=== PATIENT | male | born 1970 | race Caucasian/White ===

== ENCOUNTER 2019-04-14 16:44 | Emergency (ER) | payer OTHER ==
[~2019-04-14] VITALS: Ht 198.1 cm; Wt 90.7 kg
[2019-04-14 16:44] VITALS: BP 130/75
[~2019-04-14 16:44] MED LIST: ASPI-807 PO; ATEN50TA PO; BUPR100T4 PO; CLOP75TA15 PO; METF-440 PO; METO50TA16 PO; NITR0.4T48 SL; QUET300T2 PO
--- NOTE | 2019-04-14 16:50 | NUR ---
BIBRA 60 AND [employer] FOR "ABNORMAL VS TACHY AT 145BPM WHEN HE'S BEING CLEARED". NO C/O PAIN OR DISCOMFORT. 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 TO ER BED 12, HOOKED TO MONITOR, CHANGED TO GOWN, AWAITING MD CARREON.
--- NOTE | 2019-04-14 17:02 | NUR ---
DR WAGNER AT BEDSIDE FOR EVAL.
--- NOTE | 2019-04-14 17:16 | NUR ---
PATIENT DECIDED TO GO AMA. SIGNED AMA FORM.
--- NOTE | 2019-04-14 17:19 | NUR ---
Patient does not wish to proceed with medical care recommended by Dr. WAGNER. Patient given information related to possible complications, up to and including , which could occur as a result of leaving the hospital at this time. Patient verbalizes understanding of risks involved due to leaving against medical advice.
== END 2019-04-14 17:38 | disposition home or self-care (01) ==
LOC: ER 16:50
DX: F11.23 Opioid dependence with withdrawal (principal); R00.0 Tachycardia, unspecified; I10 Essential (primary) hypertension; E11.9 Type 2 diabetes mellitus without complications; Z95.818 Presence of other cardiac implants and grafts; Z88.6 Allergy status to analgesic agent; Z60.2 Problems related to living alone; Z79.84 Long term (current) use of oral hypoglycemic drugs; Z79.82 Long term (current) use of aspirin; Z79.899 Other long term (current) drug therapy

== ENCOUNTER 2020-12-31 11:13 | Emergency (ER) | payer OTHER ==
[~2020-12-31] VITALS: Ht 198.1 cm; Wt 74.4 kg
--- NOTE | 2020-12-31 11:38 | NUR ---
Patient a/o x3, c/o of SOB and Chest pain, non radiating, per patient he had 2 stent put in year 1999'. VSS, safety measures initiated, will continue to monitor.
[2020-12-31 11:53] LABS: BASOPHILS # (AUTO) 0.1 /CMM (0.0-0.2); BASOPHILS % (AUTO) 0.4 % (0.0-2.0); EOSINOPHILS % (AUTO) 0.6 % (0.0-6.0); HEMATOCRIT 41 % (39-51); HEMOGLOBIN 13.3 g/dL (13.5-17.5); LYMPHOCYTES # (AUTO) 1.2 /CMM (0.8-4.8); LYMPHOCYTES % (AUTO) 6.8 % (20.0-44.0); MEAN CORPUSCULAR HGB CONC 33 g/dl (31.0-36.0); MEAN CORPUSCULAR VOLUME 80 fL (80-96); MONOCYTES # (AUTO) 2.1 /CMM (0.1-1.30); MONOCYTES % (AUTO) 11.8 % (2.0-12.0); NEUTROPHILS % (AUTO) 80.4 % (43.0-81.0); PLATELET COUNT (AUTO) 419 /CMM (150-450); WHITE BLOOD COUNT (AUTO) 17.5 K/uL (4.3-11.0)
[2020-12-31 12:02] LABS: CALCIUM, SERUM 8.7 mg/dL (8.5-10.1); CARBON DIOXIDE 27 mmol/L (21-32); CHLORIDE 99 mmol/L (98-107); GLUCOSE 94 mg/dL (74-106); SODIUM SERUM 133 mmol/L (136-145); UREA NITROGEN, BLOOD 23 mg/dL (7-18)
[2020-12-31] MEDS ORDERED: CEFTRIAXONE 1GM BAG (ER ONLY) 50 ML IV ONE (13:02)
[2020-12-31] MEDS ORDERED: IOHEXOL-300 100 ML VIAL IV ONE (13:37)
[2020-12-31] MEDS ORDERED: CT SWABBABLE VALVE TRANS SET 1 EA INFUS.SET MC ONE (13:38)
[2020-12-31] MEDS ORDERED: IV NS 0.9% 250 ML IV ONE (13:38)
--- NOTE | 2020-12-31 13:42 | NUR ---
IV access on RAC #20. went to CT. VSS.
[2020-12-31] MEDS: AZITHROMYCIN 500 MG in IV D5W 250 ML IV ONE (13:43)
[2020-12-31] MEDS: CEFTRIAXONE 1GM BAG (ER ONLY) 1 GM/50 ML PIGGYBACK IV ONE (13:44)
[2020-12-31] MEDS ORDERED: Z GUARD REMEDY 2 OZ OINT TP PRN (14:30)
[2020-12-31] MEDS ORDERED: MORPHINE SULFATE INJ 2 MG/ML DISP.SYRIN IV PRN (14:30)
[2020-12-31] MEDS ORDERED: ACETAMINOPHEN 325 MG TABLET PO PRN (14:30)
[2020-12-31] MEDS ORDERED: MAGNESIUM HYDROXIDE 30 ML UDC PO PRN (14:30)
[2020-12-31] MEDS ORDERED: HYDROCODONE/APAP 5/325MG TABLET PO PRN (14:30)
[2020-12-31] MEDS ORDERED: ONDANSETRON HCL/PF 4 MG/2 ML VIAL IVP PRN (14:30)
[2020-12-31] MEDS ORDERED: MAG HYDROX/AL HYDROX/SIMETH 30 ML UDC PO PRN (14:30)
[2020-12-31] MEDS ORDERED: ZOLPIDEM TARTRATE 5 MG TABLET PO PRN (14:30)
[2020-12-31] MEDS ORDERED: ENOXAPARIN SODIUM 30 MG/0.3 ML DISP.SYRIN SQ SCH (14:30)
[2020-12-31] MEDS ORDERED: NITROGLYCERIN 0.4 MG/TAB BOTTLE SL PRN (14:30)
--- NOTE | 2020-12-31 14:54 | NUR ---
REPORT GIVEN TO NURSE PARKER
--- NOTE | 2020-12-31 15:12 | NUR ---
SPOKE TO CM, HAVE ER MD CALL DR. HERNANDEZ AT [facility], PATIENT IS CAPITATED TO [facility].
--- NOTE | 2020-12-31 15:13 | NUR ---
DR. HERNANDEZ [phone]
--- NOTE | 2020-12-31 16:24 | NUR ---
PT REFUSED AN ECHOCARDIOGRAM. INFORMED NURSE. WILL TRY AGAIN LATER.
--- NOTE | 2020-12-31 16:26 | NUR ---
[facility] [phone] EXT [phone]
[2020-12-31] MEDS ORDERED: buPROPion 100 MG TABLET PO SCH (17:00)
--- NOTE | 2020-12-31 17:03 | NUR ---
TRANSFER INFO: PT GOING TO [facility], ACCEPTED BY DR HERNANDEZ, ROOM 2276, RN FOR REPORT [phone], TRANSPORT ETA TO FOLLOW CALL THE [facility]#[id number]
--- NOTE | 2020-12-31 17:59 | NUR ---
[facility] HR ETA [phone]
--- NOTE | 2020-12-31 18:04 | NUR ---
FOR RN REPORT [phone] Addendum: 12/31/20 at 1831 by DUSTIN REPORT GIVEN TO NURSE CUTLER
--- NOTE | 2020-12-31 18:40 | NUR ---
ROOM CHANGE FROM 2276 TO 5556 PER [facility] PRESS NURSE HE.
--- NOTE | 2020-12-31 19:39 | NUR ---
PT REFUSED 2ND TIME AND UNCOOPERATIVE TO PERFORM AN ECHO EXAM. INFORMED CHALINO DELA CRUZ.
--- NOTE | 2020-12-31 19:42 | NUR ---
PT REFUSING BLOOD DRAW AND US.
--- NOTE | 2020-12-31 19:54 | NUR ---
[facility] DELAYED. NEW ETA [phone]
--- NOTE | 2020-12-31 21:05 | NUR ---
[facility] AT BED SIDE TO ASSISTANT LIBRARIAN THE PT
--- NOTE | 2020-12-31 21:11 | NUR ---
REPORT GIEVN TO EMT, PT WILL BE TRANSFERED.
[2020-12-31 21:18] VITALS: BP 111/68
[2020-12-31] MEDS ORDERED: QUETIAPINE FUMARATE 100 MG TABLET PO SCH (22:00)
[2021-01-01] MEDS ORDERED: CLOPIDOGREL BISULFATE 75 MG TABLET PO SCH (09:00)
[2021-01-01] MEDS ORDERED: ASPIRIN EC 81 MG TABLET.DR PO SCH (09:00)
[2021-01-01] MEDS ORDERED: ATENOLOL 50 MG TABLET PO SCH (09:00)
== END 2020-12-31 21:19 | disposition short-term general hospital (02) ==
LOC: ER 11:43
DX: J18.9 Pneumonia, unspecified organism (principal); J91.8 Pleural effusion in other conditions classified elsewhere; R91.8 Other nonspecific abnormal finding of lung field; I25.10 Atherosclerotic heart disease of native coronary artery without angina pectoris; Z95.5 Presence of coronary angioplasty implant and graft; Z59.0 Homelessness; Z79.82 Long term (current) use of aspirin; Z79.899 Other long term (current) drug therapy; Z79.84 Long term (current) use of oral hypoglycemic drugs; Z85.07 Personal history of malignant neoplasm of pancreas; I25.2 Old myocardial infarction; I11.9 Hypertensive heart disease without heart failure; F17.210 Nicotine dependence, cigarettes, uncomplicated; E11.9 Type 2 diabetes mellitus without complications; Z20.822 Contact with and (suspected) exposure to COVID-19
CPT/HCPCS: 36415; 71045; 71260; 80048; 83880; 84484; 85025; 87081; 93005; 96365; 96375; 99285; C9803; J0456; J0696; J7050; Q9967; U0003; J7060

== ENCOUNTER 2021-01-31 13:05 | Emergency (ER) | payer OTHER ==
[~2021-01-31] VITALS: Ht 198.1 cm; Wt 72.6 kg
[~2021-01-31 13:05] MED LIST changes: -METF-440 PO; -METO50TA16 PO; -NITR0.4T48 SL
--- NOTE | 2021-01-31 13:05 | NUR ---
PT [address] C/O DRUG ABUS. PT IS AAOX4, NOT IN RESPIRATORY DISTRESS, HOOKED TO CONTROL ROOM SUPERVISOR, KEPT RESTED AND COMFORTABLE. WILL CONTINUE TO MONITOR.
--- NOTE | 2021-01-31 13:15 | NUR ---
AT BEDSIDE FOR EVAL.
--- NOTE | 2021-01-31 13:24 | NUR ---
ER PHLEB AT BEDSIDE FOR BLOOD DRAW.
[2021-01-31 13:33] LABS: BASOPHILS # (AUTO) 0.1 K/uL (0.0-0.2); BASOPHILS % (AUTO) 0.7 % (0.0-2.0); EOSINOPHILS % (AUTO) 1.5 % (0.0-6.0); HEMATOCRIT 35 % (39-51); HEMOGLOBIN 11.2 g/dL (13.5-17.5); LYMPHOCYTES # (AUTO) 1.7 K/uL (0.8-4.8); LYMPHOCYTES % (AUTO) 19.9 % (20.0-44.0); MEAN CORPUSCULAR HGB CONC 32 g/dl (31.0-36.0); MEAN CORPUSCULAR VOLUME 81 fL (80-96); MONOCYTES # (AUTO) 0.8 K/uL (0.1-1.30); MONOCYTES % (AUTO) 9.5 % (2.0-12.0); NEUTROPHILS # (AUTO) 5.7 K/uL (1.8-8.9); NEUTROPHILS % (AUTO) 68.4 % (43.0-81.0); PLATELET COUNT (AUTO) 213 K/uL (150-450); WHITE BLOOD COUNT (AUTO) 8.4 K/uL (4.3-11.0)
[2021-01-31 13:41] LABS: CALCIUM, SERUM 8.2 mg/dL (8.5-10.1); CARBON DIOXIDE 27 mmol/L (21-32); CHLORIDE 104 mmol/L (98-107); CREATININE 0.7 mg/dL (0.6-1.3); GLUCOSE 90 mg/dL (74-106); POTASSIUM 3.4 mmol/L (3.5-5.1); SODIUM SERUM 139 mmol/L (136-145); UREA NITROGEN, BLOOD 9 mg/dL (7-18)
[2021-01-31 16:06] VITALS: BP 128/71
--- NOTE | 2021-01-31 16:06 | NUR ---
Patient given written and verbal discharge instructions. Patient verbalizes understanding of instructions. Patient is ambulatory with steady gait. Refuses offer of group home placement. Patient given list of available shelters in surrounding area. Food provided.
== END 2021-01-31 16:06 | disposition home or self-care (01) ==
LOC: ER 13:09
DX: R06.00 Dyspnea, unspecified (principal); R91.8 Other nonspecific abnormal finding of lung field; F19.10 Other psychoactive substance abuse, uncomplicated; Z59.0 Homelessness; I10 Essential (primary) hypertension; E11.9 Type 2 diabetes mellitus without complications; Z98.890 Other specified postprocedural states; Z88.5 Allergy status to narcotic agent; Z88.6 Allergy status to analgesic agent; Z60.2 Problems related to living alone; Z79.82 Long term (current) use of aspirin; Z79.899 Other long term (current) drug therapy
CPT/HCPCS: 36415; 71045-TC; 80048-TC; 84484-TC; 85025-TC

== ENCOUNTER 2022-01-19 06:57 | Emergency (ER) | payer OTHER ==
[~2022-01-19] VITALS: Ht 198.1 cm; Wt 90.7 kg
[2022-01-19] MEDS ORDERED: VALA100026 PO (07:26)
[2022-01-19] MEDS ORDERED: GABA-532 PO (07:26)
[2022-01-19] MEDS ORDERED: ONDANSETRON 4 MG TAB.RAPDIS SL ONE (07:30)
[2022-01-19] MEDS ORDERED: VALACYCLOVIR HCL 500 MG TABLET PO ONE (07:30)
[2022-01-19] MEDS ORDERED: GABAPENTIN 100 MG CAPSULE PO ONE (07:30)
[2022-01-19] MEDS ORDERED: VALACYCLOVIR HCL 500 MG TABLET ONE (07:57)
[2022-01-19] MEDS ORDERED: GABAPENTIN 100 MG CAPSULE ONE (07:57)
[2022-01-19] MEDS ORDERED: ONDANSETRON 4 MG TAB.RAPDIS ONE (07:57)
[2022-01-19 07:58] LABS: BASOPHILS % (AUTO) 0.4 % (0.0-2.0); EOSINOPHILS % (AUTO) 0.1 % (0.0-6.0); HEMATOCRIT 52 % (39-51); HEMOGLOBIN 17.6 g/dL (13.5-17.5); LYMPHOCYTES # (AUTO) 0.9 K/uL (0.8-4.8); LYMPHOCYTES % (AUTO) 16.2 % (20.0-44.0); MEAN CORPUSCULAR HGB CONC 34 g/dl (31.0-36.0); MEAN CORPUSCULAR VOLUME 82 fL (80-96); MONOCYTES # (AUTO) 0.7 K/uL (0.1-1.30); MONOCYTES % (AUTO) 12.9 % (2.0-12.0); NEUTROPHILS # (AUTO) 3.7 K/uL (1.8-8.9); NEUTROPHILS % (AUTO) 70.4 % (43.0-81.0); PLATELET COUNT (AUTO) 222 K/uL (150-450); RED BLOOD CELL COUNT(AUTO) 6.35 MIL/uL (4.5-6.0); WHITE BLOOD COUNT (AUTO) 5.3 K/uL (4.3-11.0)
--- NOTE | 2022-01-19 08:01 | NUR ---
RESTING IN BED, AWAKE AND VERBALLY RESPONSIVE. AM MEDS GIVEN, TAKEN WELL.
[2022-01-19 08:17] LABS: CALCIUM, SERUM 9.5 mg/dL (8.5-10.1); CARBON DIOXIDE 28 mmol/L (21-32); CHLORIDE 92 mmol/L (98-107); CREATININE 0.8 mg/dL (0.6-1.3); GLUCOSE 101 mg/dL (74-106); SODIUM SERUM 129 mmol/L (136-145); UREA NITROGEN, BLOOD 8 mg/dL (7-18)
--- NOTE | 2022-01-19 08:45 | NUR ---
RASH ON LT LOWER ABDOMIN WITH pain for couple of days
--- NOTE | 2022-01-19 09:15 | NUR ---
d/c instraction given to pt fully and verblized understood d/c home with rx anf fallow up care
[2022-01-19 10:33] VITALS: BP 105/60
== END 2022-01-19 10:34 | disposition home or self-care (01) ==
LOC: ER 07:00
DX: B02.9 Zoster without complications (principal); I10 Essential (primary) hypertension; E11.9 Type 2 diabetes mellitus without complications; F17.200 Nicotine dependence, unspecified, uncomplicated; Z88.8 Allergy status to other drugs, medicaments and biological substances; Z60.2 Problems related to living alone; Z79.899 Other long term (current) drug therapy
CPT/HCPCS: 36415; 71045; 80048; 84484; 85025; 93005; 99285; Q0162